=== PATIENT | male | born 1980 | race Caucasian/White ===

== ENCOUNTER 2024-01-11 15:26 | Outpatient (CLI) | payer BC, SELFPAY ==
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
== END 2024-01-11 15:27 | disposition home or self-care (01) ==
PROVIDERS: Visit Provider Emergency Medicine
DX: R07.9 Chest pain, unspecified (principal); R60.0 Localized edema; X50.9XXA Other and unspecified overexertion or strenuous movements or postures, initial encounter
CPT/HCPCS: 71046